=== PATIENT | male | born 1990 | race Caucasian/White ===

== ENCOUNTER 2023-11-20 20:53 | Emergency (ER) | payer BC ==
[2023-11-20 21:39] LABS: BASOPHILS ABSOLUTE AUTO 0.1 x10-3/uL (0.0-0.3); BASOPHILS PERCENT AUTO 0.8 % (0.3-3.8); EOSINOPHILS ABSOLUTE AUTO 0.1 x10-3/uL (0.0-0.6); EOSINOPHILS PERCENT AUTO 1.2 % (0.1-6.8); HEMATOCRIT 41.6 % (38.3-50.1); HEMOGLOBIN 14.2 g/dL (12.9-17.7); LYMPHOCYTES ABSOLUTE AUTO 1.6 x10-3/uL (0.5-4.5); LYMPHOCYTES PERCENT AUTO 21.5 % (15.8-45.3); MEAN CORPUSCULAR HEMOGLOBIN 29.9 pg (27.0-33.3); MEAN CORPUSCULAR HGB CONC 34.1 g/dL (28.7-35.3); MEAN CORPUSCULAR VOLUME 87.5 fL (80.8-98.7); MEAN PLATELET VOLUME 8.3 fL (6.7-11.0); MONOCYTES ABSOLUTE AUTO 0.7 x10-3/uL (0.0-1.2); MONOCYTES PERCENT AUTO 9.8 % (5.5-15.2); NEUTROPHILS ABSOLUTE AUTO 4.9 x10-3/uL (1.7-6.9); NEUTROPHILS PERCENT AUTO 66.7 % (40.3-71.8); PLATELET COUNT,PLT 251 x10(3)uL (117-477); RED BLOOD CELL COUNT 4.76 x10(6)uL (3.90-5.90); RED CELL DISTRIBUTION WIDTH 13.1 % (12.4-15.0); WHITE BLOOD CELL COUNT,WBC 7.3 x10-3/uL (3.2-10.1)
[2023-11-20 21:42] LABS: BLOOD UREA NITROGEN,BUN 19 mg/dL (7-18); CALCIUM 9.2 mg/dL (8.6-10.2); CARBON DIOXIDE,CO2 26 mmol/L (21-32); CHLORIDE,CL 102 mmol/L (100-110); EST CRCL DRUG DOSING (CG) 108.49 mL/min; ESTIMATED GFR 102 mL/min (>60); GLUCOSE RANDOM 103 mg/dL (80-116); POTASSIUM,K 3.9 mmol/L (3.5-5.3); SODIUM,NA 138 mmol/L (135-145)
[2023-11-20 21:45] VITALS: BP 118/80; PULSE 81
[2023-11-20 21:48] LABS: A/G RATIO 1.2; ALANINE AMINOTRANSFERASE,ALT 63 U/L (12-36); ALBUMIN 4.5 g/dL (3.5-5.2); ALKALINE PHOSPHATASE 76 IU/L (56-112); ASPARTATE AMNIOTRANSFERASE,AST 23 IU/L (5-25); BILIRUBIN TOTAL 0.3 mg/dL (0.1-1.3); PROTEIN TOTAL,TP 8.3 g/dL (6.0-8.0)
== END 2023-11-20 22:18 | disposition home or self-care (01) ==
LOC: FB.ED 20:53
DX: F41.0 Panic disorder [episodic paroxysmal anxiety] (principal); Z87.891 Personal history of nicotine dependence
CPT/HCPCS: 36415; 71046; 80053; 84484; 85025; 93005; 93010; 99284; 99285